=== PATIENT | female | born 1945 | race Caucasian/White ===

== ENCOUNTER 2024-03-13 18:21 | Inpatient (IN) | payer MEDICARE, BC, SELFPAY ==
[2024-03-13] VITALS (24 sets, daily range): BP systolic 108–155; BP diastolic 53–115; BMI 20.8; BMI 20.5
[2024-03-13 12:45] LABS: INR 1.17; PT 14.7 Sec (11.4-14.6)
[2024-03-13 12:46] LABS: ALT (SGPT) 71 U/L (0-35); Albumin 3.8 g/dl (3.5-5.0); Alkaline Phosphatase 104 U/L (38-126); Blood Urea Nitrogen 18 mg/dl (7-17); Calcium 8.8 mg/dl (8.4-10.2); Carbon Dioxide 23 mmol/L (22-30); Chloride 98 mmol/L (98-107); Estimated Creatinine Clearance 72 ml/min; Magnesium 1.9 mg/dl (1.6-2.3); Potassium 4.5 mmol/L (3.5-5.1); Sodium 131 mmol/L (135-145); Total Bilirubin 0.6 mg/dl (0.2-1.3); eGFR > 60.00
[2024-03-13 12:47] LABS: AST (SGOT) 56 U/L (14-36); Glucose 104 mg/dl (70-99)
[2024-03-13 12:49] LABS: % Basophils 1.4 % (0-2); % Eosinophils 0.7 % (0-6); % Immature Granulocytes 0.3 % (0-0.5); % Monocytes 16.8 % (1.7-9.3); % Neutrophils 61.8 % (42.2-75.2); Absolute Basophils 0.1 10^3/uL (0-0.2); Absolute Eosinophils 0.1 10^3/uL (0-0.7); Absolute Lymphocytes 1.5 10^3/uL (1.2-3.4); Absolute Monocytes 1.3 10^3/uL (0.1-0.6); Absolute Neutrophils 4.7 10^3/uL (1.4-6.5); Hematocrit 35.4 % (37.0-47.0); Hemoglobin 12.8 g/dL (12.0-16.0); Mean Corp Hgb Conc. 36.2 g/dL (33.0-37.0); Mean Corpuscular Hgb 30.8 pg (27.0-31.0); Mean Corpuscular Volume 85.3 fL (81.0-99.0); Mean Platelet Volume 9.6 fL (7.4-10.4); Nucleated Red Blood Cells % 0 %; Platelet Count 348 10^3/uL (130-400); Red Blood Cell Count 4.15 10^6/uL (4.20-5.40); Red Cell Dist. Width 14.1 % (11.5-14.5); White Blood Cell Count 7.7 10^3/uL (4.8-10.8)
--- NOTE | 2024-03-13 13:15 | ED.GENMED ---
History of Present Illness
General
Chief Complaint: Chest Problem
Source: patient and family
Time Seen by Provider: 03/13/24 12:06
History of Present Illness
History of Present Illness:
This patient is a 78-year-old female who states that last Wednesday she was 'not feeling well' associated with fevers and bodyaches which gradually resolved by Wednesday. She does note that on February 27 she suffered a bug bite x 2 to her left foot and
noticed a small area of redness. She saw her primary on Wednesday and had COVID flu Lyme and RSV testing performed, all of which were unremarkable. Around this time, perhaps Wednesday night, she noticed that her heart was racing and read as 'high'
on her pulse oximeter at home for at least a few hours before resolving. She noticed this again last night. She denies palpitations. Patient had blood work performed as a prerequisite to her rheumatology appointment for today, but does not yet
know the results. That blood work was performed on Wednesday, which is the same time that she noted mild discomfort in the front of her chest and less so in the back specifically only with a deep breath. This is still present, but much less. She
thinks she may have wrenched her back. Wednesday evening she had an episode of nonbloody diarrhea. Overall, she feels weak and has been eating less than usual although she is very hungry right now. She rang her PCP today and was referred to the
emergency department for further evaluation. She denies dyspnea, palpitations, dizziness, lightheadedness, nausea, vomiting, ECM like rash, tick bites, joint pain, or other complaints.
Past History
Past History
ED Past Medical History: Other (Sjogren's, ocular myasthenia, Raynaud's, essential tremor, Sweta's)
ED Past Surgical History: Cholecystectomy
Social History
Tobacco: Former smoker
Alcohol: Daily
Drug: None
Personal:
Living: with family
Phy Exam
Physical Exam
Physical Exam:
GENERAL: Alert , in no apparent distress
EYE: pupils equal and reactive
NECK: Supple, no significant adenopathy.
ENT: o/p clr, mmm.
CARDIAC: Irregularly irregular, tachycardic
LUNGS: Clear breath sounds bilaterally, no acute respiratory distress, speaks in full sentences easily, no wheezes rales or rhonchi noted
ABDOMEN: Soft, without focal tenderness, no r/g, no cvat
NEUROLOGICAL: Alert and oriented, no focal neuro deficits
SKIN: Warm and dry, skin intact.
MUSCULOSKELETAL: No edema, well perfused.
PSYCH: Normal and appropriate interaction.
Scores
[id number] Score for Afib Stroke Risk
Age in Years (65=0, 65-74=1, >/=75=2): > or = 75
Sex (Female=+1): Female
Congestive Heart Failure History (Yes=+1): No
Hypertension History (Yes=+1): No
Stroke/TIA/Thromboembolism History (Yes=+2): No
Vascular Disease History (Yes=+1): No
Diabetes Mellitus (Yes=+1): No
Score: 3
Anticoagulation Recommendations: Recommend anticoagulation (as validated in nonvalvular fib)
Course
Orders/Labs/Results
Orders:
Orders
03/13/24 12:00
Electrocardiogram (*1) Urgent
Reason for Study: Bradycardia / Tachycardia
EKG- Treatment ONCE
03/13/24 12:06
Cardiac Monitoring- Treatment ONCE
CR Chest Portable - 1 View Urgent
Comment:
Reason For Exam: sooob
Reason Study Needs to be Portable: Unable to Transport
03/13/24 12:22
Complete Blood Count/With Diff Urgent
Comprehensive Metabolic Panel Urgent
Magnesium Urgent
PTT Urgent
Prothrombin Time Urgent
TSH Urgent
03/13/24 13:14
Diltiazem 125 mg/125 ml Nss [Cardizem] 125 mg in 125 ml IV NOW
Initial dose in mg/hr, then titrate:: 5
Titrate to keep:: Heart rate 80-100 bpm
Titrate by mg/hr:: 5 mg/hr
Frequency of titrations (minutes):: 15
Maximum dose in mg/hr:: 15
Diltiazem HCl [Cardizem] 15 mg IV NOW STA
Heparin 3,500 units IV NOW STA
Nursing to Place Non Medication Order As Directed
Physician Order: PTT 6 hours after initial start of Heparin infusion
Above order entered?: Yes
03/13/24 13:15
0.9% Sodium Chloride 500 ml [Nss] 500 ml IV BOLUS
Heparin 71960 Units/250 ml 25,000 units in 250 ml IV PER PROTOCOL
Weight to be used for heparin protocol in kilograms (kg):: 58.4
Protocol:: Cardiac Tx/Acute Coronary
PTT Goal Range to be used:: PTT 73 to 111 seconds
Order type:: Initial
INITIAL Infusion Dose (UNITS/KG/hr) & then follow protocol:: 12 units/kg/hr
Infusion Dose in UNITS/hr & then follow protocol (UNITS/hr):: 700
INFUSION RATE in mL/hr & then follow protocol (mL/hr):: 7
PTT less than or equal to 64 seconds:: Increase rate by 200 units/hr (+ 2 mL/hr)
PTT 64.1 to 72.9 seconds:: Increase rate by 100 units/hr (+ 1 mL/hr)
PTT 73 to 111 seconds:: Target Range. No change in rate.
PTT 111.1 to 130.9 seconds:: Decrease rate by 100 units/hr (- 1 mL/hr)
PTT 131 to 199.9 seconds:: HOLD for 1 hr. Then decrease rate by 200 units/hr (- 2 mL/hr)
PTT greater than or equal to 200 seconds:: HOLD for 2 hrs & Notify Provider. Then decrease by 200 units/hr (-
2 mL/hr)
Lab follow-up:: Each change, PTT q6h until 2 consecutive are therapeutic. Then PTT
daily.
03/13/24 13:41
D-Dimer Urgent
Lyme Progressive Stat
03/13/24 14:21
CT Chest Pe Study Urgent
Comment:
Reason For Exam: pleuritic cp, new onset afib
03/13/24 14:27
Troponin I Routine
Comment: COULD NOT BE ADDED
03/13/24 19:33
PT/INR [Prothrombin Time] Routine
Is patient on Coumadin/Warfarin?: No
Comment: ON IV HEPARIN
Abnormal Lab Results
03/13/24 03/13/24
12:22 13:41
RBC 4.15 L 10^6/uL
(4.20-5.40)
Hct 35.4 L %
(37.0-47.0)
Absolute Monos (auto) 1.3 H 10^3/uL
(0.1-0.6)
Lymphocytes % 19.0 L %
(20.5-51.1)
Monocytes % 16.8 H %
(1.7-9.3)
PT 14.7 H Sec
(11.4-14.6)
D-Dimer 2.65 H ug/mlFEU
(0.00-0.50)
Sodium 131 L mmol/L
(135-145)
BUN 18 H mg/dl
(7-17)
Creatinine 0.5 L mg/dL
(0.6-1.0)
Glucose 104 H mg/dl
(70-99)
AST 56 H U/L
(14-36)
ALT 71 H U/L
(0-35)
TSH 5.19 H uIU/ml
(0.47-4.68)
03/13/24 12:22
03/13/24 12:22
Vital Signs
Initial and Last Documented VS:
Initial Vital Signs
Temp Pulse Resp BP Pulse Ox
98.0 F 168 18 155/97 98
03/13/24 12:00 03/13/24 12:00 03/13/24 12:00 03/13/24 12:00 03/13/24 12:00
Last Documented Vital Signs
Temp Pulse Resp BP Pulse Ox
98.0 F 148 21 135/88 96
03/13/24 12:00 03/13/24 14:55 03/13/24 14:45 03/13/24 14:45 03/13/24 13:45
*Critical Care Note
Total Time (30-74mins, 75-104mins- exclusive of procedures): 30
Update Note
Update Note:
Patient presents to the Emergency Department with generalized malaise, fevers, pleuritic chest pain
Number and Complexity of Problems Addressed at the Encounter
� Chronic conditions affecting care:
� Acute Exacerbation and/or Progression of Chronic Illness:
� Differential Diagnosis includes: But not limited to A-fib, PE, Lyme, electrolyte disorder, etc. etc.
Amount and/or Complexity of Data to be Reviewed and Analyzed
� I performed an independent evaluation of and my interpretation is:
EKG: Read by me, normal axis, A-fib with RVR, no acute ischemia
CT:1. No evidence of pulmonary embolism or thoracic aortic dissection.
2. Small bilateral pleural effusions, suspected bibasilar subsegmental atelectasis.
3. Mild centrilobular emphysema.
4. Mild coronary arterial calcification. Please correlate with symptoms of and risk factors for coronary artery disease, with further workup as clinically appropriate.
Xrays: Chest x-ray read by radiology NAD
Laboratory Studies: Generally unremarkable, troponin within normal limits. Nonspecific D-dimer elevation but CT not consistent with PE
Other:
� Review of other/old records reveals:
� Clinical information was obtained by an independent historian: Daughter who is bedside
� Prescriptions/Medications Considered but not given:
� Further testing considered but not performed:
Risk of Complications and/or Morbidity or Mortality of Patient Management
� Social determinants of health affecting care:
� Discussion with other providers (PCP, Hospitalists, Consultants, etc):
� Escalation of care including admission/observation vs risk of discharge considered: Multiple reassessments, will increase Cardizem drip for enhanced rate control, heparin drip started, no bleeding. Patient feels better, and
did eat a meal. No PE noted. Will discuss with hospitalist for admission and continued management of new onset A-fib. Patient remained stable here and is aware of goals of care, daughter at bedside, questions answered. 3:31 PM [place] text sent to
admitting hospitalist.
ED Attending Note
-
Portions of this chart may have been created with voice recognition software.� Occasional wrong word or��sound alike� substitutions may have occurred due to the inherent limitations of voice recognition software.
Discharge Plan
Departure
Patient Disposition: Admit
Date of Disposition: 03/13/24
Time of Disposition: 15:31
Admit to: Telemetry
Presentation/result/management discussed w/ accepting MD/DO: Hospitalist
Condition: Fair
Discharge Problem:
A-fib
Prescriptions:
No Action
aspirin 81 mg Tablet,Delayed Release (Dr/Ec)
81 mg PO HS
levothyroxine 25 mcg Tablet
25 mcg PO DAILY
calcium carbonate [Calcium 500] 500 mg calcium (1,250 mg) Tablet
500 mg PO BID
ascorbic acid (vitamin C) [Vitamin C] 500 mg Tablet
500 mg PO DAILY
ibuprofen [Advil] 200 mg Tablet
200 mg PO Q6HPRN PRN (Reason: mild pain)
vitamin B complex Tablet
1 tab PO DAILY
cholecalciferol (vitamin D3) [Vitamin D3] 25 mcg (1,000 unit) Tablet
25 mcg PO HS
Fish Oil 500 mg Capsule
500 mg PO HS
Centrum 18-400 mg-mcg Tablet
1 tab PO DAILY
Referrals:
Olga Sosa, [Family Provider] -
Interventions
Interventions:
*Risk Screen - Suicide Last Done: 03/13/24 12:13
*General Assessment Last Done: 03/13/24 12:13
*Neglect/Abuse Screening Last Done: 03/13/24 12:13
*ED COVID-19 Vaccine History Last Done: 03/13/24 12:13
ED- Cardiac Assessment Last Done: 03/13/24 12:13
ED- Pulmonary Assessment Last Done: 03/13/24 12:13
Discharge Date and Time
Print Language: SUDANESE
[2024-03-13 13:17] LABS: TSH 5.19 uIU/ml (0.47-4.68)
[2024-03-13] MEDS: HEPARIN 3500 UNITS IV (13:32)
[2024-03-13] MEDS: HEPARIN 25000 UNITS/250 ML IV (13:33)
[2024-03-13] MEDS: CARDIZEM 15 MG IV ×2 (13:41→15:36)
[2024-03-13] MEDS: NSS 500 IV (13:41)
[2024-03-13] MEDS: CARDIZEM 125 IV ×2 (13:41→21:36)
[2024-03-13 14:14] LABS: D-Dimer 2.65 ug/mlFEU (0.00-0.50)
[2024-03-13 15:02] LABS: Troponin I < 0.012 ng/ml
--- NOTE | 2024-03-13 19:02 | HPS.HSE ---
Addendum entered and electronically signed by Sherly Gee MD 03/13/24 20:21:
I personally performed a history and physical exam of the patient and discussed management with the resident. I reviewed the resident's note and agree with the documented findings and plan of care HPI/CC.
GENERAL: well developed, well nourished, female in no apparent distress
HEENT: NC/AT--no O2 requirements
HEART: irreg irreg
LUNGS : clear to auscultation bilaterally
ABDOM: soft, nontender, nondistended, + bowel sounds
EXT: no cyanosis, clubbing, or edema
NEUROLOGIC: tremor present--grossly intact otherwise
new onset Atrial Fibrillation--unclear trigger--doubt thyroid causing as TSH 5, ? related to heat, ETOH (drinks 1 beer/night), COPD?--ADMIT--cont cardizem drip, IV heparin--will need ECHO--CM to [facility]--D-Dimer elevated but CT PE neg
Fevers-- unclear cause--possibly viral--pt did get insect bite--check for Babesia--culture--COVID swab negative
Hypothyroid--with hx of Sweta's--Elevated TSH levels--No medication adjustments at the present time. May consider adjustment of levothyroxine if thyroid levels remain abnormal following resolution of presenting medical issue--Recommend repeat
outpatient lab testing for fine-tuning of medication.
Elevated liver function tests: Monitoring--AST is 71 and ALT is 56 which is elevated--Possibly due to infectious process. Will monitor.
Reduced appetite--Regular diet ordered--Consider dietary consult.
Ongoing autoimmune disease including Sjogren's, Sweta's, ocular myasthenia gravis, Raynaud's phenomenon---Will reach out to Dr. Costa in regards to recent blood work conducted to share with the patient. Lab data may be able to help be a clear
picture of the patient's ongoing autoimmune disease
DVT proph
code status -- FULL CODE
Original Note:
Family Physician
-
Family Physician: Olga Sosa
Chief Complaint
-
Heart palpitations and high temperature
History of Present Illness
This patient is a 78-year-old female who presented to the emergency department stating that last Wednesday she was 'not feeling well' and associated with fevers and bodyaches which gradually resolved by Wednesday. She noted that on February 27 she suffered
2 bug bites on her left foot and noticed a small area of redness she saw her primary on Wednesday and and had a COVID, flu, Lyme, and RSV testing conducted which were all negative. 6 days prior to her presentation to the emergency department she
noticed that her heart was racing and read as high on her pulse oximeter at home for at least a few hours before resolving. She again noticed it the the night prior to her presentation at the emergency department. She denies palpitations. Patient
had a bout of diarrhea on Wednesday afternoon that continued into Wednesday before resolving. Her appetite has decreased. Patient had blood work done for an upcoming rheumatology appointment with Dr. Costa and does not know the results of the blood
work. Patient also noted mild discomfort in the front of her chest and less so on the back specifically only with a deep breath the pain is still present but much less. She thinks that she may have hurt her back after a fall walking upstairs.
When she fell she did not hit her head or lose consciousness. She denies any dyspnea, palpitations, dizziness, lightheadedness, nausea, vomiting, rash, joint pain or any other complaints. Patient got a [id number] score of 3 in the emergency
department. EKG conducted showed an irregular rhythm suspicious for atrial fibrillation with rapid ventricular response. The patient was subsequently admitted to [facility] for atrial fibrillation.
Medical History
Past Medical History
Past Medical History: Reports Other (Sjogren's, Sweta's, ocular myasthenia gravis, Raynaud's phenomenon, and essential tremor)
Additional Past Medical History:
Sjogren's, Sweta's, ocular myasthenia, Raynaud's, essential tremor
Past Surgical History: Reports Cholecystectomy
Social History
Tobacco: Non-smoker
Alcohol: Occasional
Drug: None
Personal:
Living: With Family
Employment: Not Employed
Family History
Family History: Other (Her sisters share many of the similar autoimmune disorders that she has but 1 sister also has vitiligo)
Allergies / Home Medications
Allergies reflects when Allergies were last updated in [employer].
Home Medications with original date entered in [employer]
Allergy/Medication List:
Allergies
Allergy/AdvReac Type Severity Reaction Status Date / Time
No Known Allergies Allergy Verified 03/13/24 12:02
Home Medications
ascorbic acid (vitamin C) 500 mg tablet (Vitamin C) 500 mg PO DAILY 03/13/24
aspirin 81 mg tablet,delayed release 81 mg PO HS 03/13/24
calcium carbonate 500 mg PO BID 03/13/24
cholecalciferol (vitamin D3) 25 mcg (1,000 unit) tablet (Vitamin D3) 25 mcg PO HS 03/13/24
ibuprofen 200 mg tablet (Advil) 200 mg PO Q6HPRN PRN mild pain 03/13/24
levothyroxine 25 mcg tablet 25 mcg PO DAILY 03/13/24
multivitamin-ferrous fumarate-folic acid 18 mg-400 mcg tablet (Centrum) 1 tab PO DAILY 03/13/24
omega-3 fatty acids 500 mg capsule 500 mg PO HS 03/13/24
vitamin B complex 1 tab PO DAILY 03/13/24
Review of Systems
-
History Source: Patient
Constitutional: Reports Fever and Fatigue
EENT: Reports No Symptoms
Respiratory: Reports No Symptoms
Cardiac: Reports Other (Fast heart rate that she does not feel as palpitations)
Abdomen/GI: Reports No Symptoms
: Reports No Symptoms
Musculoskeletal: Reports No Symptoms
Skin: Reports Other (2 bug bites on her left foot)
Neurological: Reports No Symptoms
Endocrine: Reports No Symptoms
Hematologic/Lymphatic: Reports No Symptoms
Psych: Reports No Symptoms
Physical Exam
Vital Signs
Vital Signs
Temp Pulse Resp BP Pulse Ox
98.0 F 80 20 122/70 95
03/13/24 12:00 03/13/24 19:00 03/13/24 18:50 03/13/24 19:00 03/13/24 17:50
Physical Exam
General: Well Developed, Well Nourished, No Apparent Distress, Comfortable and Conversant
HEENT: NormoCephalic, Anicteric, Moist mucous membranes and Atraumatic
Respiratory: Crackles (Minimal crackles heard on lower left lung base) and Non Labored Respirations
Cardiac: Irregular Rhythm
Breast: Deferred by me
GI: Soft, Non Tender, Non Distended and Normal Bowel Sounds
Rectal: Deferred by Provider
Genito-urinary: Deferred by me
Musculoskeletal: No Clubbing, No Cyanosis and No Edema
Skin: Warm and Dry
Neuro: AO x 3 and Nonfocal/grossly intact
Psych: Calm
Laboratory Results
-
03/13/24 12:22
03/13/24 12:22
Laboratory Results
PT 14.7 Sec (11.4-14.6) H 03/13/24 12:22
INR 1.17 03/13/24 12:22
APTT 33.0 Sec (23.4-35.0) 03/13/24 12:22
Total Bilirubin 0.6 mg/dl (0.2-1.3) 03/13/24 12:22
AST 56 U/L (14-36) H 03/13/24 12:22
ALT 71 U/L (0-35) H 03/13/24 12:22
Alkaline Phosphatase 104 U/L (38-126) 03/13/24 12:22
Troponin I < 0.012 ng/ml 03/13/24 14:27
Impression/Plan
-
Impression + Plan:
- Irregular rhythm - EKG study shows new onset Atrial Fibrillation: Monitoring
Patient admitted to the IVU for further treatment and monitoring
Cardizem drip administered for rate control
Heparin drip begun for anticoagulation
Cardiology consult ordered
Echocardiogram ordered
Troponins within normal limits
Elevated D-dimer of 2.65 on admission
- Fever like symptoms: Monitoring
Urine cultures ordered
Considering blood cultures�on hold
COVID swab negative
Babesia microti labs ordered
- Elevated TSH levels: Monitoring
No medication adjustments at the present time. May consider adjustment of levothyroxine if thyroid levels remain abnormal following resolution of presenting medical issue.
Recommend repeat outpatient lab testing for fine-tuning of medication.
- Elevated liver function tests: Monitoring
AST is 71 and ALT is 56 which is elevated.
Possibly due to infectious process. Will monitor.
- Reduced appetite: Monitoring
Regular diet ordered.
Consider dietary consult.
- Ongoing autoimmune disease including Sjogren's, Sweta's, ocular myasthenia gravis, Raynaud's phenomenon: Monitoring
Will reach out to Dr. Costa in regards to recent blood work conducted to share with the patient. Lab data may be able to help be a clear picture of the patient's ongoing autoimmune disease.
[2024-03-13 19:03] LABS: Urine Albumin Negative (Neg - Trace); Urine Bilirubin Negative (Negative); Urine Character Clear (Clear); Urine Color Straw; Urine Glucose Negative (Negative); Urine Ketone Negative (Negative); Urine Leukocyte 2+ (Negative); Urine Nitrite Negative (Negative); Urine Occult Blood 1+ (Negative); Urine Urobilinogen Negative (Neg - 1+)
[2024-03-13 19:09] LABS: COVID-19 Antigen Negative (Negative)
[2024-03-13 19:23] LABS: Urine Bacteria Moderate (Negative)
[2024-03-13 21:15] LABS: INR 1.13; PT 14.3 Sec (11.4-14.6)
[2024-03-13 21:16] LABS: APTT 46.7 Sec (23.4-35.0)
[2024-03-13] MEDS: VITAMIN D3 (cholecalciferol) 25 MCG PO (21:28)
[2024-03-13] MEDS: ASPIR LOW (ENTERIC COATED) 81 MG PO (21:28)
[2024-03-13] MEDS: OSCAL CAL 500 500 MG PO (21:28)
--- NOTE | 2024-03-13 23:35 | PTCARENOTE ---
Pt admitted to IVU from ED ~1930. Pt and daughter oriented to unit and hospital. Pt belongings w/ pt. Discussed fall risk status w/ pt and reinforced using call esteves for assistance getting OOB. HR afib 80s-100s. Heparin currently infusing at
900u/hr. Cardizem infusing at 15mg/hr.
[2024-03-14] VITALS (7 sets, daily range): BP systolic 136–171; BP diastolic 63–80; BMI 20.5
[2024-03-14] MEDS: MELATONIN 3 MG PO (00:55)
[2024-03-14 03:40] LABS: Hematocrit 33.7 % (37.0-47.0); Mean Corp Hgb Conc. 35.6 g/dL (33.0-37.0); Mean Corpuscular Hgb 31.4 pg (27.0-31.0); Mean Corpuscular Volume 88.2 fL (81.0-99.0); Mean Platelet Volume 9.9 fL (7.4-10.4); Platelet Count 369 10^3/uL (130-400); Red Blood Cell Count 3.82 10^6/uL (4.20-5.40); White Blood Cell Count 7.3 10^3/uL (4.8-10.8)
[2024-03-14 04:00] LABS: APTT 54.9 Sec (23.4-35.0)
[2024-03-14 04:03] LABS: ALT (SGPT) 98 U/L (0-35); AST (SGOT) 86 U/L (14-36); Albumin 3.3 g/dl (3.5-5.0); Alkaline Phosphatase 136 U/L (38-126); Blood Urea Nitrogen 14 mg/dl (7-17); Calcium 8.7 mg/dl (8.4-10.2); Carbon Dioxide 24 mmol/L (22-30); Chloride 100 mmol/L (98-107); Estimated Creatinine Clearance 71 ml/min; Glucose 104 mg/dl (70-99); Magnesium 1.8 mg/dl (1.6-2.3); Potassium 4.1 mmol/L (3.5-5.1); Sodium 132 mmol/L (135-145); Total Bilirubin 0.5 mg/dl (0.2-1.3); Total Protein 6.4 g/dl (6.3-8.2); eGFR > 60.00
[2024-03-14] MEDS: SYNTHROID 25 MCG PO (05:29)
[2024-03-14] MEDS: CARDIZEM 125 IV (05:59)
[2024-03-14] MEDS: B COMPLEX w/VITAMIN C 1 CAPLET PO (08:40)
[2024-03-14] MEDS: OSCAL CAL 500 500 MG PO ×2 (08:41→19:49)
[2024-03-14] MEDS: THERAGRAN 1 TABLET PO (08:41)
[2024-03-14] MEDS: VITAMIN C 500 MG PO (08:41)
--- NOTE | 2024-03-14 09:15 | CON.CAR ---
Addendum entered and electronically signed by Ty Reza MD 03/14/24 13:30:
I saw and examined the patient.
The ECHO TECHNICIAN's note was reviewed and I agree with the note.
78-year-old woman with a history of COPD, Sjogren's syndrome, Raynaud's phenomenon, myasthenia gravis and Sweta's thyroiditis who had a febrile illness last week with fevers and bodyaches for 3 to 4 days and then number days later had diarrhea.
Those symptoms have resolved patient did not notice that she had an elevated heart rate on pulse oximeter and ultimately was noted to be in A-fib with RVR. Patient's had some fatigue also has not slept well. Unclear how much of her symptoms are
related to recent illness versus some symptoms related to A-fib. Patient in reasonable rate control on Cardizem which was just transition from IV to oral
- New onset A-fib. CHADSVASC 4 (female age greater than 75, HTN)
-Continue anticoagulation. Transition from heparin to Eliquis
-Continue rate control with Cardizem.
-Discussed possible MARKOS cardioversion tomorrow. Patient is unsure if she wants to proceed. We agreed that she would be n.p.o. after midnight and would reassess in a.m.
Original Note:
Consultation
Consultation Request
Date/Time Consultation Requested: 03/14/2024 07:25
Date/Time Consultation Performed: 03/14/2024 09:00
Requesting Provider: Dr. Kristine Morgan
Performing Provider: CHRISTINE Del Rio for Dr. Reza
Reason for Consultation: New onset atrial fibrillation
Medical History
-
Chief Complaint: Elevated heart rate
History of Present Illness:
Aileen Galicia is a 78-year-old female with COPD/former smoker, Sjogren's, ocular myasthenia gravis, Raynaud's phenomenon, and Sweta's thyroiditis who presented with a chief complaint of elevated heart rate. This was preceded by 'not
feeling well' with associated fevers and bodyaches. She had episodes of diarrhea that were nonbloody. These have resolved. But she endorses that her appetite is not back to normal. She saw her PCP. SARS COV 2 was negative in the office. RSV
and influenza were also negative. She reported a recent bug bite to her left foot and the line was also performed. 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 She was found to have atrial fibrillation with rapid
ventricular response for which cardiology has been consulted.
Past Medical History
Past Medical History: COPD, Hypothyroidism (Sweta's thyroiditis) and Other (Ocular myasthenia gravis, Raynaud's phenomenon, Sjogren's)
Past Surgical History: Cholecystectomy
Social History
Tobacco: Former Smoker
Alcohol: Daily
Drug: None
Personal:
Living: With Family (Cares for her disabled )
Employment: Retired
Family History
Family History: Reviewed & Not Pertinent (Denies early CAD and SCD.)
Allergies / Home Medications
Allergy/AdvReac Type Severity Reaction Status Date / Time
No Known Allergies Allergy Verified 03/13/24 12:02
�Medication �Instructions �Recorded �Confirmed �Type
ascorbic acid (vitamin C) 500 mg 500 mg PO DAILY Supplement 03/13/24 03/13/24 History
tablet (Vitamin C)
aspirin 81 mg tablet,delayed 81 mg PO HS Blood Clot 03/13/24 03/13/24 History
release Prevention/Tx
calcium carbonate 500 mg PO BID Supplement 03/13/24 03/13/24 History
cholecalciferol (vitamin D3) 25 25 mcg PO HS Supplement 03/13/24 03/13/24 History
mcg (1,000 unit) tablet (Vitamin
D3)
ibuprofen 200 mg tablet (Advil) 200 mg PO Q6HPRN PRN mild pain 03/13/24 03/13/24 History
levothyroxine 25 mcg tablet 25 mcg PO DAILY Supplement 03/13/24 03/13/24 History
multivitamin-ferrous 1 tab PO DAILY Supplement 03/13/24 03/13/24 History
fumarate-folic acid 18 mg-400 mcg
tablet (Centrum)
omega-3 fatty acids 500 mg capsule 500 mg PO HS High Cholesterol 03/13/24 03/13/24 History
vitamin B complex 1 tab PO DAILY Supplement 03/13/24 03/13/24 History
Review of Systems
-
History Source: Patient
All other systems: Negative unless noted
Constitutional: Fever, Fatigue and Night Sweats
EENT: No Symptoms
Respiratory: No Symptoms
Cardiac: Palpitations
Abdomen/GI: Constipated and Anorexia
: No Symptoms
Musculoskeletal: No Symptoms
Skin: No Symptoms
Neurological: Weakness
Endocrine: Temperature Intolerance
Hematologic/Lymphatic: No Symptoms
Physical Exam
Vital Signs
Temp Pulse Resp BP Pulse Ox
97.8 F 79 20 140/63 93
03/14/24 07:30 03/14/24 07:31 03/14/24 07:30 03/14/24 07:31 03/14/24 07:31
Lab Results
03/14/24 03:12
03/14/24 03:12
Troponin I < 0.012 ng/ml 03/13/24 14:27
Physical Exam
General: Well Developed, Well Nourished, No Apparent Distress and Comfortable
HEENT: Normocephalic, Anicteric and Moist Mucous Membranes
Respiratory: Clear and Non Labored Respirations
Cardiac: S1/S2 and Irregular Rhythm; Negative Peripheral Edema
Breast: Deferred by me
GI: Soft, Non Tender, Non Distended and Normal Bowel Sounds
Rectal: Deferred by Provider
Genito-urinary: No Costovertebral Tender
Musculoskeletal: No Clubbing, No Cyanosis and No Edema
Skin: Warm and Dry
Neuro: AO x 3
Hematologic/Lymphatic: No Lymphadenopathy
Psych: Calm
Impression / Plan
-
Atrial fibrillation with rapid ventricular response, new diagnosis
-Asymptomatic without palpitations
-Rate controlled, transition to Cardizem CD 120 mg daily
-Elevated D-dimer, CT PE study negative
-Oral Anticoagulation: Heparin gtt, case management to cruz apixaban 5 mg twice daily
-We discussed the risks and benefits of oral anticoagulation, she has never had any abnormal bleeding, she is agreeable to anticoagulation
-[id number]: score at least 4 (age 75 or more, Vascular disease, female gender)
-Echocardiogram today
Coronary artery calcification
-Chest pain free
-Fasting lipid panel in a.m.
-Start rosuvastatin 10 mg every evening
-She can stop her aspirin in favor of apixaban
Fevers, per primary service
Sweta's thyroiditis, on levothyroxine, TSH elevated, T4 pending
COPD
Sjogren's
Ocular myasthenia gravis
Raynaud's phenomenon
Data Reviewed
-
EKG: Report Reviewed by me (Atrial fibrillation with rapid ventricular response, rate 159)
Radiology: Report Reviewed by me (CXR: Clear lungs)
CT Scan: Report Reviewed by me (Chest: No evidence of pulmonary embolism or thoracic aortic dissection. Mild centrilobular emphysema. Mild coronary arterial calcification. )
Labs: Labs Reviewed by me
[2024-03-14 11:14] LABS: APTT 71.4 Sec (23.4-35.0)
[2024-03-14 11:23] LABS: TSH Reflex To Free T4 8.19 uIU/ml (0.47-4.68)
[2024-03-14] MEDS: CARDIZEM CD 120 MG PO (11:42)
[2024-03-14 11:51] LABS: Free T4 1.55 ng/dl (0.78-2.19)
--- NOTE | 2024-03-14 12:01 | CM ---
Chart reviewed. Patient is independent of ADLS, lives with her disabled in a 2 STH, 2 GIAN, 0 DME. Patient currently with no discharge needs. Plan is for the patient to return home. CM to follow
--- NOTE | 2024-03-14 12:02 | CM ---
Pricing on Eliquis through the patient's [facility] is $30 retail and $60 for a 90 day supply. Patient is agreeable to the cost. Free 30 day coupon placed in the patient's red discharge folder.
[2024-03-14] MEDS: ELIQUIS 5 MG PO ×2 (13:26→19:49)
--- NOTE | 2024-03-14 15:23 | W.PN.HOSP.TC ---
Addendum entered and electronically signed by Sherly Gee MD 03/14/24 19:13:
I saw and evaluated the patient independently. I reviewed the resident�s note and agree with findings and plan as documented by Dr. Morgan.
GENERAL: well developed, well nourished, female in no apparent distress
HEENT: NC/AT--no O2 requirements
HEART: irreg irreg
LUNGS : clear to auscultation bilaterally
ABDOM: soft, nontender, nondistended, + bowel sounds
EXT: no cyanosis, clubbing, or edema
NEUROLOGIC: tremor present--grossly intact otherwise
new onset Atrial Fibrillation--unclear trigger--doubt thyroid causing as TSH 5, ? related to heat, ETOH (drinks 1 beer/night), COPD?--off cardizem drip and now on oral cardizem, off IV heparin and now on Eliquis-- ECHO with preserved EF but severe
mitral regurg---D-Dimer elevated but CT PE neg
Fevers-- unclear cause--possibly viral--pt did get insect bite-- Babesia smear pending----COVID swab negative
Hypothyroid--with hx of Sweta's--Elevated TSH levels--No medication adjustments at the present time. May consider adjustment of levothyroxine if thyroid levels remain abnormal following resolution of presenting medical issue--Recommend repeat
outpatient lab testing for fine-tuning of medication.
Elevated liver function tests: Monitoring--AST is 71 and ALT is 56 which is elevated--Possibly due to infectious process--if still elevated in AM, will do US
Reduced appetite--Regular diet ordered--Consider dietary consult.
Ongoing autoimmune disease including Sjogren's, Sweta's, ocular myasthenia gravis, Raynaud's phenomenon---Will reach out to Dr. Costa in regards to recent blood work conducted to share with the patient. Lab data may be able to help be a clear
picture of the patient's ongoing autoimmune disease
DVT proph
code status -- FULL CODE
Original Note:
Today's Communication/Plan
-
Cardiology assessment placed the patient had a [id number] score of 4. They recommended that the patient continue anticoagulation and be transitioned from heparin to Eliquis upon discharge. Continue rate control Cardizem. The patient is
considering possible MARKOS cardioversion tomorrow. Patient is unsure if she wants to proceed with MARKOS cardioversion but would agree that she would be n.p.o. after midnight and reassess tomorrow morning. Lorazepam in the evening added to help with
patient's anxiety during bedtime.
Assessment / Plan
Assessment / Plan
Impression + Plan:
- Atrial fibrillation with rapid ventricular response: Monitoring
Patient admitted to the IVU for further treatment and monitoring
Cardizem drip administered for rate control - Continue
Heparin drip begun for anticoagulation -plan to transition to Eliquis PO if affordable in the outpatient setting
Cardiology consult ordered -assessment determined that the patient is diagnosed with atrial fibrillation with rapid ventricular response -diagnosis updated. [id number] score was at least 4 (age 75 or more, vascular disease, female gender).
Cardiology recommends continuing anticoagulation and transitioning from heparin to Eliquis. They should continue rate control with Cardizem. There was consideration of possible MARKOS cardioversion tomorrow but the patient was unsure if she wanted to
proceed. She agreed to be n.p.o. after midnight and would reassess in the morning.
Echocardiogram ordered -echocardiogram showed a normal left ventricular size, wall thickness and systolic function. There was no regional wall motion abnormalities seen. Left ventricular ejection fraction was 60 to 65%. Diastolic function was
indeterminate due to atrial fibrillation. There was moderate tricuspid regurgitation and mild aortic regurgitation. Severe mitral regurgitation.
Troponins within normal limits
Elevated D-dimer of 2.65 on admission
- Coronary artery calcification: Stable and Monitoring
Chest is pain-free
Fasting lipid panel in the morning
Patient started on rosuvastatin 10 mg every morning
Patient can stop her aspirin in favor of apixaban
- Fever like symptoms: Monitoring
Urine cultures ordered -no significant growth
Considering blood cultures�on hold
COVID swab negative
Babesia microti labs ordered -pending
Lyme disease IgG and IgM-pending
- Elevated TSH levels: Monitoring
No medication adjustments at the present time. May consider adjustment of levothyroxine if thyroid levels remain abnormal following resolution of presenting medical issue.
Recommend repeat outpatient lab testing for fine-tuning of medication.
- Elevated liver function tests: Monitoring
AST is 86 and ALT is 98 which is elevated.
Possibly due to infectious process. Will monitor.
- Reduced appetite: Monitoring
Regular diet ordered.
Consider dietary consult.
-Anxiety/difficulty sleeping:
Patient is struggling to sleep at night and finds herself thinking about and worrying about her hospital stay.
0.5 mg of lorazepam added at night
- Ongoing autoimmune disease including Sjogren's, Sweta's, ocular myasthenia gravis, Raynaud's phenomenon: Monitoring
Left multiple phone messages with Dr. Costa's office in hopes of getting patient's outpatient lab work. Fax number left on answering machine. Will continue to try and reach their office. Patient provided urine analysis through patient portal.
Will continue to check patient portal for additional lab updates.
Anticipated Discharge: 24 - 48 hours
Subjective/Interval History
-
Date of Service: March 14, 2024
Met with patient at the bedside. She feels slightly better but continues to feel an underlying heat throughout the day. She is happy that her urine analysis results from the outpatient setting was uploaded to her patient portal and she shared that
with her care team. She did not sleep well last night and states that she only got a couple hours of sleep due to anxiety over her hospital admission.
Objective Data
-
Labs:
Laboratory Results
03/14/24 03/14/24 03/14/24
03:12 10:47 17:30
WBC 7.3
Hgb 12.0
Hct 33.7 L
Plt Count 369
APTT 54.9 H 71.4 H Cancelled
Sodium 132 L
Potassium 4.1
Chloride 100
Carbon Dioxide 24
BUN 14
Creatinine 0.4 L
Glucose 104 H
Calcium 8.7
Total Bilirubin 0.5
AST 86 H
ALT 98 H
Alkaline Phosphatase 136 H
Vital Signs:
Vital Signs
Temp Pulse Resp BP Pulse Ox
97.5 F 101 18 162/69 94
03/14/24 11:21 03/14/24 12:55 03/14/24 11:21 03/14/24 11:42 03/14/24 11:21
I&O
03/13/24 03/14/24 03/15/24
06:59 06:59 06:59
Intake Total 720 / 720 240 / 240
Balance 720 / 720 240 / 240
Review of Systems
-
History Source: Patient
Constitutional: Reports Other (Feeling hot)
EENT: Reports No Symptoms Reported
Respiratory: Reports No Symptoms
Cardiac: Reports No Symptoms
Abdomen/GI: Reports No Symptoms
Breast: Reports No Symptoms
Genitourinary: Reports No Symptoms
Musculoskeletal: Reports No Symptoms
Skin: Reports No Symptoms
Neuro: Reports No Symptoms
Endocrine: Reports No Symptoms
Hematologic / Lymphatic: Reports No Symptoms
Allergy / Immunology: Reports No Symptoms
Psych: Reports Anxious
[2024-03-14] MEDS: CRESTOR 10 MG PO (17:40)
--- NOTE | 2024-03-14 17:55 | PTCARENOTE ---
pt received from previous RN, oriented, in bed. pt noted in to be in SR on the monitor, converted from Afib @~1621, EKG completed, Dr. Reza notified. pt ambulates independently. PIV.
--- NOTE | 2024-03-14 20:41 | PTCARENOTE ---
Pt. received at change of shift. Pt. seen and assessed. Pt. AOx3. Tele reading Afib in 90s-110s. No complaints of pain at this time. Continuing to monitor the pt.
[2024-03-14] MEDS: ATIVAN 0.5 MG PO (22:12)
[2024-03-14] MEDS: VITAMIN D3 (cholecalciferol) 25 MCG PO (22:12)
[2024-03-15] VITALS (7 sets, daily range): BP systolic 139–156; BP diastolic 61–92; BMI 20.2
--- NOTE | 2024-03-15 02:56 | DOWNTIME ---
There was a [employer]ographic Information Systems Engineer Downtime on 03/15/2024 from 0100 to 03/15/2024 at 0255. Downtime documentation of patient's care, including medication administrations, has been reconciled in the electronic record per guidelines. Refer to the
patient's paper chart under the miscellaneous tab to see printed paper medication records and downtime forms.
[2024-03-15] MEDS: SYNTHROID 25 MCG PO (04:08)
[2024-03-15 05:16] LABS: Hematocrit 37.9 % (37.0-47.0); Hemoglobin 13.5 g/dL (12.0-16.0); Mean Corp Hgb Conc. 35.6 g/dL (33.0-37.0); Mean Corpuscular Volume 87.1 fL (81.0-99.0); Mean Platelet Volume 9.6 fL (7.4-10.4); Platelet Count 438 10^3/uL (130-400); Red Blood Cell Count 4.35 10^6/uL (4.20-5.40); Red Cell Dist. Width 13.9 % (11.5-14.5); White Blood Cell Count 8.1 10^3/uL (4.8-10.8)
--- NOTE | 2024-03-15 05:44 | PTCARENOTE ---
Overnight event, Pt. received phone call from that he had fallen. RN noticed, pt's HR Afib in the 140s-150s. Pt. upset in room r/t 's condition. After situation with resolved pt's HR returned to the 90s-110s. BP stable.
Continuing to monitor the pt.
[2024-03-15 05:46] LABS: ALT (SGPT) 85 U/L (0-35); AST (SGOT) 51 U/L (14-36); Albumin 3.7 g/dl (3.5-5.0); Alkaline Phosphatase 129 U/L (38-126); Blood Urea Nitrogen 11 mg/dl (7-17); Calcium 9.3 mg/dl (8.4-10.2); Carbon Dioxide 22 mmol/L (22-30); Chloride 103 mmol/L (98-107); Estimated Creatinine Clearance 70 ml/min; Glucose 96 mg/dl (70-99); HDL Cholesterol 41 mg/dl; LDL Cholesterol, Calculated 86 mg/dl; Magnesium 1.9 mg/dl (1.6-2.3); Potassium 4.2 mmol/L (3.5-5.1); Sodium 136 mmol/L (135-145); Total Bilirubin 0.5 mg/dl (0.2-1.3); Total Cholesterol 141 mg/dl (50-199); Total Protein 7.3 g/dl (6.3-8.2); Triglyceride 72 mg/dl (10-149); Very Low Density Lipoprotein 14 mg/dl (0-30); eGFR > 60.00
[2024-03-15] MEDS: CARDIZEM CD 120 MG PO (07:28)
[2024-03-15] MEDS: ELIQUIS 5 MG PO ×2 (07:28→19:29)
[2024-03-15] MEDS: THERAGRAN 1 TABLET PO (09:26)
[2024-03-15] MEDS: VITAMIN C 500 MG PO (09:26)
[2024-03-15] MEDS: B COMPLEX w/VITAMIN C 1 CAPLET PO (09:26)
[2024-03-15] MEDS: OSCAL CAL 500 500 MG PO ×2 (09:26→19:29)
--- NOTE | 2024-03-15 09:43 | W.PN.CD ---
Today's Communication / Plan
-
increase diltiazem to 180mg bid
Impression / Plan
-
Atrial fibrillation with rapid ventricular response, new diagnosis--paroxysmal
-echo with preserved EF, but significant valve disease (see below)
-initial plans for MARKOS/DCCV, but A fib was paroxysmal overnight
-back in A fib this AM: focus on rate control for now
-increase diltiazem to 180mg bid
-[id number]: score at least 4 (age 75 or more, Vascular disease, female gender): eliquis 5mg bid
Severe MR, mild/moderate AR
-central MR jet, with dilated LA and annulus
-will plan for MARKOS as outpatient once recovers from hospitalization
-we discussed topics of surgical MV repair vs MitraClip
Coronary artery calcification
-Chest pain free
-Fasting lipid panel in a.m.
-Start rosuvastatin 10 mg every evening
-She can stop her aspirin in favor of apixaban
Fevers, per primary service
Sweta's thyroiditis, on levothyroxine, TSH elevated, T4 pending
COPD
Sjogren's
Ocular myasthenia gravis
Raynaud's phenomenon
Physical Exam
Vital Signs/Labs
Vital Signs
Temp Pulse Resp BP Pulse Ox
97.9 F 99 20 149/86 95
03/15/24 07:06 03/15/24 07:30 03/15/24 07:06 03/15/24 07:09 03/15/24 08:01
03/14/24 03/15/24 03/16/24
06:59 06:59 06:59
Actual Weight 57.7 kg 56.7 kg
03/15/24 04:20
03/15/24 04:20
PT 14.3 Sec (11.4-14.6) 03/13/24 20:53
INR 1.13 03/13/24 20:53
APTT Cancelled 03/14/24 17:30
Magnesium 1.9 mg/dl (1.6-2.3) 03/15/24 04:20
Triglycerides 72 mg/dl (10-149) 03/15/24 04:20
LDL Cholesterol, Calc 86 mg/dl 03/15/24 04:20
VLDL Cholesterol, Calc 14 mg/dl (0-30) 03/15/24 04:20
HDL Cholesterol 41 mg/dl 03/15/24 04:20
TSH 5.19 uIU/ml (0.47-4.68) H 03/13/24 12:22
Free T4 1.55 ng/dl (0.78-2.19) 03/14/24 03:12
LAB Results
03/13/24
14:27
Troponin I < 0.012
Physical Exam
Constitutional: No acute distress and Comfortable
EENT: Moist mucous membranes
Cardiovascular: Pedal edema is absent, JVD pressure is normal, Rhythm/rate is irregular and Systolic murmur present
Respiratory: Respiratory effort normal and Lungs clear to auscul.
GI: Soft and Distention absent
Neuro/Psych: AO x 3
Data Reviewed
-
Date of Service: March 15, 2024
EKG: Other (SR/ST/A fib)
Echo: Tracing Personally Visualized and interpreted
Labs: Labs Reviewed by me
[2024-03-15] MEDS: CARDIZEM 60 MG PO (09:44)
--- NOTE | 2024-03-15 13:23 | CM ---
Chart reviewed. Patient is independent of ADLS, lives with her disabled in a 2 STH, 2 GIAN, 0 DME. Patient currently with no discharge needs. CM to follow
--- NOTE | 2024-03-15 13:25 | PN.CDI ---
Addendum entered and electronically signed by Kristine Morgan MD, Resident 03/15/24 18:24:
Clinically insignificant abnormal lab value
I did not include hyponatremia as it was not symptomatic nor was it far away from normal limits. NSS was given due to worries of possible dehydration from diarrhea. Sodium returned to normal limits after IV fluid resuscitation.
Original Note:
CDI
- -
CDI:
Physician Documentation Request
Admit Date: 03/13/24 18:21
Dear Doctor Cathy,
Please review the following and provide your response in the progress notes.
Clinical Indicators:
- 03/13 500ml NSS bolus given
- Labs as follows:
Laboratory Tests
03/13/24 03/14/24
12:22 03:12
Sodium 131 L 132 L
Please provide a diagnosis for the above lab values that were monitored and treatment rendered:
Hyponatremia
Clinically insignificant abnormal lab value
Other
Use of terms such as suspected, likely, concern for, or probable (associated with a specific diagnosis that is being evaluated, monitored, or treated as if it exists) are acceptable and can be coded in the inpatient setting, when documented at the
time of discharge.
Thank you,
Diane Lock RN
CDI Specialist
Please use your independent medical judgment in providing your response.
--- NOTE | 2024-03-15 13:30 | PN.CDI ---
Addendum entered and electronically signed by Kristine Morgan MD, Resident 03/15/24 18:17:
Atelectasis is not yet confirmed but remains a suspected condition.
- 03/13 CT Chest 'Mild dependent groundglass opacity most suggestive of subsegmental atelectasis'
This diagnosis has not been confirmed by a surfacer operator at the present time and imaging is not definitive.
Original Note:
CDI
- -
CDI:
Physician Documentation Request
Admit Date: 03/13/24 18:21
Dear Doctor Cathy,
Please review the following and provide your response in the progress notes.
Clinical Indicators:
The diagnosis of atelectasis was included in the signed (path report, CT, MRI, echo, etc).
- Patient admit for new onset afib
- 03/13 CT Chest 'Mild dependent groundglass opacity most suggestive of subsegmental atelectasis'
- RN assessments indicate breath sounds of crackles
Please indicate in your progress notes if you are in agreement that the above diagnosis is valid for this patient:
____ - Atelectasis is a valid diagnosis (Please include it in your progress notes)
____ - Atelectasis is not a valid diagnosis for this patient
____ - Atelectasis is not yet confirmed but remains a suspected condition
____ - Other
Use of terms such as suspected, likely, concern for, or probable are acceptable for a diagnosis that is being evaluated, monitored or treated as if it exists and can be coded in the inpatient setting, when documented at the time of discharge.
Thank you,
Diane Lock RN
CDI Specialist
Please use your independent medical judgment in providing your response.
[2024-03-15 15:07] LABS: Lyme Antibody Screen, EIA Negative (Negative)
--- NOTE | 2024-03-15 15:53 | W.PN.HOSP.TC ---
Addendum entered and electronically signed by Sherly Gee MD 03/15/24 19:06:
I saw and evaluated the patient independently. I reviewed the resident�s note and agree with findings and plan as documented by Dr. Morgan.
GENERAL: well developed, well nourished, female in no apparent distress
HEENT: NC/AT--no O2 requirements
HEART: irreg irreg
LUNGS : clear to auscultation bilaterally
ABDOM: soft, nontender, nondistended, + bowel sounds
EXT: no cyanosis, clubbing, or edema
NEUROLOGIC: tremor present--grossly intact otherwise
new onset paroxysmal Atrial Fibrillation--unclear trigger--off cardizem drip and now on oral cardizem, off IV heparin and now on Eliquis-- ECHO with preserved EF but severe mitral regurg---D-Dimer elevated but CT PE neg--MARKOS/CV deferred--increased
diltiazem for better rate control
Severe Mitral Regurgitation--Cardiology assessment is determined that there is a central mitral regurgitation jet, with dilated left atrium and annulus--Cardiology has discussed topics of surgical mitral valve repair versus MitraClip
Fevers-- unclear cause--possibly viral--pt did get insect bite-- Babesia smear negative----COVID swab negative--CXR with atelectasis NO pna--resolved
Hypothyroid--with hx of Sweta's--Elevated TSH levels--No medication adjustments at the present time. May consider adjustment of levothyroxine if thyroid levels remain abnormal following resolution of presenting medical issue--Recommend repeat
outpatient lab testing for fine-tuning of medication.
hyponatremia -- noted
Elevated liver function tests: Monitoring--AST is 71 and ALT is 56 which is elevated--Possibly due to infectious process--improving
Reduced appetite--Regular diet ordered--Consider dietary consult.
Ongoing autoimmune disease including Sjogren's, Sweta's, ocular myasthenia gravis, Raynaud's phenomenon---Will reach out to Dr. Costa in regards to recent blood work conducted to share with the patient. Lab data may be able to help be a clear
picture of the patient's ongoing autoimmune disease
DVT proph
code status -- FULL CODE
Original Note:
Today's Communication/Plan
-
Cardiology assessment is determined that the patient suffers from paroxysmal atrial fibrillation with rapid ventricular response. Instead of MARKOS/DCCV they are currently opting for rate control. Diltiazem has been increased to 180 mg twice daily
and Eliquis 5 mg twice daily has been started. Patient also discussed the risks and benefits of surgical mitral valve repair versus MitraClip with cardiology.
Assessment / Plan
Assessment / Plan
Impression + Plan:
- Paroxysmal Atrial fibrillation with rapid ventricular response: Monitoring
Patient admitted to the IVU for further treatment and monitoring
Cardizem drip administered for rate control - Continue
Heparin drip discontinued, Eliquis 5 mg twice daily started.
Cardiology consult ordered -assessment determined that the patient is diagnosed with atrial fibrillation with rapid ventricular response -diagnosis updated. [id number] score was at least 4 (age 75 or more, vascular disease, female gender).
Patient has been transitioned to apixaban 5 mg p.o. twice daily. Rate control is continued with Cardizem. Diltiazem was increased to 180 mg twice daily. There was consideration of possible MARKOS cardioversion but the patient went in and out of
atrial fibrillation overnight. This morning the patient was back in atrial fibrillation and cardiology has opted to focus on rate control for the time being.
Echocardiogram ordered -echocardiogram showed a normal left ventricular size, wall thickness and systolic function. There was no regional wall motion abnormalities seen. Left ventricular ejection fraction was 60 to 65%. Diastolic function was
indeterminate due to atrial fibrillation. There was moderate tricuspid regurgitation and mild aortic regurgitation. Severe mitral regurgitation detected.
Troponins within normal limits
Elevated D-dimer of 2.65 on admission
- Severe Mitral Regurgitation:
Cardiology assessment is determined that there is a central mitral regurgitation jet, with dilated left atrium and annulus
Cardiology has discussed topics of surgical mitral valve repair versus MitraClip
- Coronary artery calcification: Stable and Monitoring
Chest is pain-free
Fasting lipid panel in the morning
Patient started on rosuvastatin 10 mg every morning
Patient can stop her aspirin in favor of apixaban
- Fever like symptoms: Monitoring
Urine cultures ordered -no significant growth
Considering blood cultures�on hold
COVID swab negative
Babesia microti labs ordered -pending
Lyme disease IgG and IgM-pending
- Elevated TSH levels: Monitoring
No medication adjustments at the present time. May consider adjustment of levothyroxine if thyroid levels remain abnormal following resolution of presenting medical issue.
Recommend repeat outpatient lab testing for fine-tuning of medication.
- Elevated liver function tests: Monitoring
AST is 51 and ALT is 85 which is elevated.
Possibly due to infectious process. Will monitor.
- Reduced appetite: Monitoring
Regular diet ordered.
Consider dietary consult.
-Anxiety/difficulty sleeping:
Patient is struggling to sleep at night and finds herself thinking about and worrying about her hospital stay.
0.5 mg of lorazepam added at night
- Ongoing autoimmune disease including Sjogren's, Sweta's, ocular myasthenia gravis, Raynaud's phenomenon: Monitoring
Left multiple phone messages with Dr. Costa's office in hopes of getting patient's outpatient lab work. Fax number left on answering machine. Will continue to try and reach their office. Patient provided urine analysis through patient portal.
Will continue to check patient portal for additional lab updates.
-
Anticipated Discharge: Within 24 hours
Subjective/Interval History
-
Date of Service: March 15, 2024
Met with patient at the bedside. She states that she feels about the same as she did yesterday and continues to feel somewhat anxious about her condition. She spoke to cardiology about about treatment options for her atrial fibrillation with rapid
ventricular response. Initial plans were for MARKOS/DCCV but cardiology ruled that out due to the A-fib being paroxysmal overnight. She is aware of her mitral regurgitation and intends to follow-up with cardiology.
Objective Data
-
Labs:
Laboratory Results
03/15/24
04:20
WBC 8.1
Hgb 13.5
Hct 37.9
Plt Count 438 H
Sodium 136
Potassium 4.2
Chloride 103
Carbon Dioxide 22
BUN 11
Creatinine 0.4 L
Glucose 96
Calcium 9.3
Total Bilirubin 0.5
AST 51 H
ALT 85 H
Alkaline Phosphatase 129 H
Vital Signs:
Vital Signs
Temp Pulse Resp BP Pulse Ox
97.7 F 103 18 140/61 97
03/15/24 15:36 03/15/24 12:00 03/15/24 15:36 03/15/24 11:56 03/15/24 15:36
I&O
03/14/24 03/15/24 03/16/24
06:59 06:59 06:59
Intake Total 720 / 720 390 / 390 240 / 240
Balance 720 / 720 390 / 390 240 / 240
Review of Systems
-
History Source: Patient
Constitutional: Reports No Symptoms
EENT: Reports No Symptoms Reported
Respiratory: Reports No Symptoms
Cardiac: Reports No Symptoms
Abdomen/GI: Reports No Symptoms
Breast: Reports No Symptoms
Genitourinary: Reports No Symptoms
Musculoskeletal: Reports No Symptoms
Skin: Reports No Symptoms
Neuro: Reports No Symptoms
Endocrine: Reports No Symptoms
Hematologic / Lymphatic: Reports No Symptoms
Allergy / Immunology: Reports No Symptoms
Psych: Reports Anxious
Physical Exam
-
General: Well Developed, Well Nourished, No Apparent Distress and Comfortable
HEENT: Normocephalic, Atraumatic and Moist Mucous Membranes
Respiratory: Clear to Auscultation
Cardiac: Irregular Rhythm
Breast: Deferred by me
GI: Soft, Nontender, Nondistended and Normal Bowel Sounds
Rectal: Deferred by Provider
Genito-urinary: Deferred by me
Musculoskeletal: No Clubbing, No Cyanosis and No Edema
Skin: Warm and Dry
Neuro: Awake, Alert, Oriented, AO x 3 and Nonfocal/Grossly Intact
[2024-03-15] MEDS: CRESTOR PO (17:51)
--- NOTE | 2024-03-15 19:05 | PTCARENOTE ---
Pt in and out of sinus rhythm/atrial fib throughout the day at a rate @90-120 with activity. Diltiazem increased. Pt denies any discomfort, up independently in her room with a steady gait.
--- NOTE | 2024-03-15 19:22 | PTCARENOTE ---
Pt. received at change of shift. Pt. sitting in chair. No complaints of pain. AOx3. BP stable. Tele showing HR in Afib in the 110s. Continuing to monitor the pt.
[2024-03-15] MEDS: CARDIZEM CD 180 MG PO (19:29)
[2024-03-15] MEDS: ATIVAN PO (22:12)
[2024-03-15] MEDS: VITAMIN D3 (cholecalciferol) 25 MCG PO (22:12)
[2024-03-16] VITALS (8 sets, daily range): BP systolic 127–164; BP diastolic 61–108
[2024-03-16] MEDS: SYNTHROID 25 MCG PO (03:29)
--- NOTE | 2024-03-16 04:05 | PTCARENOTE ---
Pt. seen in room, awake reading her book. Pt. AOx3. VS WNL. No complaints of pain at this time. AM lab work completed. Awaiting results. Continuing to monitor the patient.
[2024-03-16 04:08] LABS: Hematocrit 37.2 % (37.0-47.0); Hemoglobin 13.3 g/dL (12.0-16.0); Mean Corp Hgb Conc. 35.8 g/dL (33.0-37.0); Mean Corpuscular Hgb 30.9 pg (27.0-31.0); Mean Corpuscular Volume 86.5 fL (81.0-99.0); Mean Platelet Volume 9.3 fL (7.4-10.4); Platelet Count 475 10^3/uL (130-400); Red Cell Dist. Width 13.7 % (11.5-14.5); White Blood Cell Count 9.3 10^3/uL (4.8-10.8)
[2024-03-16 04:28] LABS: ALT (SGPT) 66 U/L (0-35); AST (SGOT) 40 U/L (14-36); Albumin 3.6 g/dl (3.5-5.0); Alkaline Phosphatase 121 U/L (38-126); Blood Urea Nitrogen 14 mg/dl (7-17); Calcium 9.1 mg/dl (8.4-10.2); Carbon Dioxide 19 mmol/L (22-30); Chloride 105 mmol/L (98-107); Estimated Creatinine Clearance 70 ml/min; Glucose 104 mg/dl (70-99); Magnesium 1.9 mg/dl (1.6-2.3); Potassium 4.1 mmol/L (3.5-5.1); Sodium 136 mmol/L (135-145); Total Bilirubin 0.5 mg/dl (0.2-1.3); Total Protein 7.1 g/dl (6.3-8.2); eGFR > 60.00
--- NOTE | 2024-03-16 07:44 | W.PN.HOSP.TC ---
Addendum entered and electronically signed by Sherly Gee MD 03/16/24 14:01:
I saw and evaluated the patient independently. I reviewed the resident�s note and agree with findings and plan as documented by Dr. Morgan.
GENERAL: well developed, well nourished, female in no apparent distress
HEENT: NC/AT--no O2 requirements
HEART: irreg irreg--tachycardia
LUNGS : clear to auscultation bilaterally
ABDOM: soft, nontender, nondistended, + bowel sounds
EXT: no cyanosis, clubbing, or edema
NEUROLOGIC: tremor present--grossly intact otherwise
new onset paroxysmal Atrial Fibrillation--unclear trigger, worse with anxiety-- oral cardizem/Eliquis-- ECHO with preserved EF but severe mitral regurg---D-Dimer elevated but CT PE neg--MARKOS/CV deferred--increased diltiazem for better rate
control--added xanax for anxiety--hopeful d/c in AM
Severe Mitral Regurgitation--Cardiology assessment is determined that there is a central mitral regurgitation jet, with dilated left atrium and annulus--Cardiology has discussed topics of surgical mitral valve repair versus MitraClip
Fevers-- unclear cause--possibly viral--pt did get insect bite-- Babesia smear negative----COVID swab negative--CXR with atelectasis NO pna--resolved
Hypothyroid--with hx of Sweta's--Elevated TSH levels--No medication adjustments at the present time. May consider adjustment of levothyroxine if thyroid levels remain abnormal following resolution of presenting medical issue--Recommend repeat
outpatient lab testing for fine-tuning of medication.
hyponatremia -- noted
Elevated liver function tests: Monitoring--AST is 71 and ALT is 56 which is elevated--Possibly due to infectious process--improving
Reduced appetite--Regular diet ordered--Consider dietary consult.
Ongoing autoimmune disease including Sjogren's, Sweta's, ocular myasthenia gravis, Raynaud's phenomenon---Will reach out to Dr. Costa in regards to recent blood work conducted to share with the patient. Lab data may be able to help be a clear
picture of the patient's ongoing autoimmune disease
DVT proph
code status -- FULL CODE
Original Note:
Today's Communication/Plan
-
We will continue to monitor the patient and determine if she is at a stable baseline for rate control. Once stable we may move forward with discharge planning. Patient remains anxious and it is affecting her quality of sleep along with her comfort
during her hospital stay. 0.25 alprazolam every 8 hours as needed given to the patient for ongoing anxiety. Patient plans to continue to follow-up with the cardiologists who followed her in the inpatient setting.
Assessment / Plan
Assessment / Plan
Impression + Plan:
- Paroxysmal Atrial fibrillation with rapid ventricular response: Monitoring
Patient admitted to the IVU for further treatment and monitoring
Cardizem drip administered for rate control - Continue
Heparin drip discontinued, Eliquis 5 mg twice daily started.
Cardiology consult ordered -assessment determined that the patient is diagnosed with atrial fibrillation with rapid ventricular response -diagnosis updated. [id number] score was at least 4 (age 75 or more, vascular disease, female gender). Rate
control is continued with Cardizem - increased to 180 mg twice daily. There was consideration of possible MARKOS cardioversion but the patient went in and out of atrial fibrillation overnight. Cardiology has opted to focus on rate control for the
time being. Continuing monitoring for stable rate control.
Echocardiogram ordered -echocardiogram showed a normal left ventricular size, wall thickness and systolic function. There was no regional wall motion abnormalities seen. Left ventricular ejection fraction was 60 to 65%. Diastolic function was
indeterminate due to atrial fibrillation. There was moderate tricuspid regurgitation and mild aortic regurgitation. Severe mitral regurgitation detected.
Troponins within normal limits
Elevated D-dimer of 2.65 on admission
Patient feels comfortable with the current cardiology group that is following her here in the inpatient setting. She is aware that she will need to undergo cardiac catheterization prior to valvular heart surgery and will arrange it in the
outpatient setting.
- Severe Mitral Regurgitation:
Cardiology assessment is determined that there is a central mitral regurgitation jet, with dilated left atrium and annulus
Cardiology has discussed topics of surgical mitral valve repair versus MitraClip
- Coronary artery calcification: Stable and Monitoring
Chest is pain-free
Fasting lipid panel in the morning
Patient started on rosuvastatin 10 mg every morning
Patient can stop her aspirin in favor of apixaban
- Fever like symptoms: Monitoring
Urine cultures ordered -no significant growth
Considering blood cultures�on hold
COVID swab negative
Babesia microti labs ordered -Negative
Lyme disease IgG and IgM-pending
- Elevated TSH levels: Monitoring
No medication adjustments at the present time. May consider adjustment of levothyroxine if thyroid levels remain abnormal following resolution of presenting medical issue.
Recommend repeat outpatient lab testing for fine-tuning of medication.
- Elevated liver function tests: Monitoring
AST is 40 and ALT is 66 and continues to trend downward
Possibly due to infectious process. Will monitor.
- Reduced appetite: Monitoring
Regular diet ordered.
Consider dietary consult.
-Anxiety/difficulty sleeping:
Patient is struggling to sleep at night and finds herself thinking about and worrying about her hospital stay.
0.5 mg of lorazepam added at night
0.25 alprazolam every 8 hours as needed ordered
- Ongoing autoimmune disease including Sjogren's, Sweta's, ocular myasthenia gravis, Raynaud's phenomenon: Monitoring
Left multiple phone messages with Dr. Costa's office in hopes of getting patient's outpatient lab work. Fax number left on answering machine. Will continue to try and reach their office. Patient provided urine analysis through patient portal.
Will continue to check patient portal for additional lab updates.
DVT prophylaxis: apixaban
Full code
Anticipated Discharge: 24 - 48 hours
Subjective/Interval History
-
Date of Service: March 16, 2024
Met with patient at the bedside. Overall, she states that she feels about the same as she did yesterday. Patient hopes to be discharged in the near future but is aware that she needs to be rate controlled prior to discharge. She feels anxious and
worries whether this is a major contributing factor to her increased heart rate.
Objective Data
-
Labs:
Laboratory Results
03/16/24
03:37
WBC 9.3
Hgb 13.3
Hct 37.2
Plt Count 475 H
Sodium 136
Potassium 4.1
Chloride 105
Carbon Dioxide 19 L
BUN 14
Creatinine 0.4 L
Glucose 104 H
Calcium 9.1
Total Bilirubin 0.5
AST 40 H
ALT 66 H
Alkaline Phosphatase 121
Vital Signs:
Vital Signs
Temp Pulse Resp BP Pulse Ox
97.9 F 93 20 127/76 98
03/16/24 07:21 03/16/24 04:00 03/16/24 07:21 03/16/24 03:28 03/16/24 07:21
I&O
03/15/24 03/16/24 03/17/24
06:59 06:59 06:59
Intake Total 390 / 390 390 / 390
Balance 390 / 390 390 / 390
Review of Systems
-
History Source: Patient
EENT: Reports No Symptoms Reported
Respiratory: Reports No Symptoms
Cardiac: Reports No Symptoms
Abdomen/GI: Reports No Symptoms
Breast: Reports No Symptoms
Genitourinary: Reports No Symptoms
Musculoskeletal: Reports No Symptoms
Skin: Reports No Symptoms
Neuro: Reports No Symptoms
Endocrine: Reports No Symptoms
Hematologic / Lymphatic: Reports No Symptoms
Allergy / Immunology: Reports No Symptoms
Physical Exam
-
General: Well Developed, Well Nourished and Comfortable
HEENT: Normocephalic, Atraumatic and Moist Mucous Membranes
Respiratory: Clear to Auscultation
Cardiac: Irregular Rhythm
Breast: Deferred by me
GI: Nontender, Nondistended and Normal Bowel Sounds
Rectal: Deferred by Provider
Genito-urinary: Deferred by me
Musculoskeletal: No Clubbing, No Cyanosis and No Edema
Skin: Warm and Dry
Neuro: Nonfocal/Grossly Intact
[2024-03-16] MEDS: B COMPLEX w/VITAMIN C 1 CAPLET PO (07:52)
[2024-03-16] MEDS: THERAGRAN 1 TABLET PO (07:52)
[2024-03-16] MEDS: VITAMIN C 500 MG PO (07:52)
[2024-03-16] MEDS: OSCAL CAL 500 500 MG PO ×2 (07:52→20:01)
[2024-03-16] MEDS: CARDIZEM CD 180 MG PO ×2 (07:53→20:01)
[2024-03-16] MEDS: ELIQUIS 5 MG PO ×2 (07:53→20:01)
--- NOTE | 2024-03-16 09:51 | W.PN.CD ---
Today's Communication / Plan
-
-Patient keeps going in and out of atrial fibrillation; primarily asymptomatic.
-Cardizem CD dose was increased from 120 mg daily yesterday to 180 mg twice daily; continue that dose and continue manager monitoring for now.
-Will need to undergo cardiac catheterization prior to valvular heart surgery; will arrange as outpatient.
-Will reevaluate tomorrow.
Impression / Plan
-
Atrial fibrillation with rapid ventricular response, new diagnosis--paroxysmal
-Patient keeps going in and out of atrial fibrillation; primarily asymptomatic.
-echo with preserved EF, but significant valve disease (see below)
-initial plans for MARKOS/DCCV, but A fib was paroxysmal as above.
-Cardizem CD dose was increased from 120 mg daily yesterday to 180 mg twice daily; continue that dose and continue manager monitoring for now.
-[id number]: score at least 4 (age 75 or more, Vascular disease, female gender): Continue Eliquis 5 mg BID.
Severe MR, mild/moderate TR
-central MR jet, with dilated LA and annulus
-will plan for MARKOS as outpatient once recovers from hospitalization; surgical MV repair vs MitraClip.
Coronary artery calcification
-Chest pain free
-Fasting lipid panel in a.m.
-Start rosuvastatin 10 mg every evening
-She can stop her aspirin in favor of apixaban
-Will need to undergo cardiac catheterization prior to valvular heart surgery; will arrange as outpatient.
Fevers, per primary service
Sweta's thyroiditis, on levothyroxine, TSH elevated, T4 normal.
COPD
Sjogren's
Ocular myasthenia gravis
Raynaud's phenomenon
Physical Exam
Vital Signs/Labs
Vital Signs
Temp Pulse Resp BP Pulse Ox
97.9 F 117 20 161/76 96
03/16/24 07:21 03/16/24 07:50 03/16/24 07:21 03/16/24 07:23 03/16/24 07:56
03/15/24 03/16/24 03/17/24
06:59 06:59 06:59
Actual Weight 56.7 kg 56.1 kg
03/16/24 03:37
03/16/24 03:37
PT 14.3 Sec (11.4-14.6) 03/13/24 20:53
INR 1.13 03/13/24 20:53
APTT Cancelled 03/14/24 17:30
Magnesium 1.9 mg/dl (1.6-2.3) 03/16/24 03:37
Triglycerides 72 mg/dl (10-149) 03/15/24 04:20
LDL Cholesterol, Calc 86 mg/dl 03/15/24 04:20
VLDL Cholesterol, Calc 14 mg/dl (0-30) 03/15/24 04:20
HDL Cholesterol 41 mg/dl 03/15/24 04:20
TSH 5.19 uIU/ml (0.47-4.68) H 03/13/24 12:22
Free T4 1.55 ng/dl (0.78-2.19) 03/14/24 03:12
LAB Results
03/13/24
14:27
Troponin I < 0.012
Physical Exam
Constitutional: No acute distress and Comfortable
EENT: Anicteric
Cardiovascular: Rhythm & rate is regular, Pedal edema is absent, Systolic murmur present (2/6) and S1S2 is normal
Respiratory: Respiratory effort normal and Lungs clear to auscul.
GI: Soft
Neuro/Psych: AO x 3
Other: Skin (Warm, dry, intact)
Data Reviewed
-
Date of Service: March 16, 2024
EKG: Tracing Personally Visualized and interpreted (Telemetry: Sinus rhythm, PAF with RVR to 140s)
Echo: Report Reviewed by me (Severe MR, moderate TR, mild AR)
Medical Tests (PFT, Pathology etc): Discussed with Physician (Primary Hospitalist team) and Discussed with Patient
Labs: Labs Reviewed by me
[2024-03-16] MEDS: XANAX 0.25 MG PO (10:03)
--- NOTE | 2024-03-16 10:25 | CM ---
Chart reviewed. Patient is independent of ADLS, lives with her disabled in a [address], 2 [address], 0 [address]ME. Plan is for the patient to return home. CM to follow
--- NOTE | 2024-03-16 19:23 | PTCARENOTE ---
Pt with uncontrolled atrial fib up to 160's in the morning. Pt anxious and disappointed about staying longer, given xanax and rfelaxed with her son. Heart rate @90 all afternoon, sinus rhythm for 2 hourssss, otherwise atrial fib. Pt up walking in
halls , remained in 90's while walking.
[2024-03-16] MEDS: CRESTOR PO (19:29)
[2024-03-16] MEDS: ATIVAN 0.5 MG PO (22:17)
[2024-03-16] MEDS: VITAMIN D3 (cholecalciferol) 25 MCG PO (22:17)
[2024-03-17 02:03] LABS: Babesia microti IgG < 1:16 (< 1:16); Babesia microti IgM <1:20 (<1:20)
[2024-03-17 04:40] VITALS: BP 143/84
[2024-03-17 04:59] VITALS: BMI 19.8
[2024-03-17] MEDS: SYNTHROID 25 MCG PO (05:51)
[2024-03-17 06:19] LABS: Hematocrit 36.2 % (37.0-47.0); Hemoglobin 12.8 g/dL (12.0-16.0); Mean Corp Hgb Conc. 35.4 g/dL (33.0-37.0); Mean Corpuscular Volume 84.8 fL (81.0-99.0); Mean Platelet Volume 9.1 fL (7.4-10.4); Platelet Count 508 10^3/uL (130-400); Red Blood Cell Count 4.27 10^6/uL (4.20-5.40); Red Cell Dist. Width 13.9 % (11.5-14.5); White Blood Cell Count 10.4 10^3/uL (4.8-10.8)
[2024-03-17 06:36] LABS: ALT (SGPT) 65 U/L (0-35); AST (SGOT) 47 U/L (14-36); Albumin 3.5 g/dl (3.5-5.0); Alkaline Phosphatase 94 U/L (38-126); Blood Urea Nitrogen 14 mg/dl (7-17); Carbon Dioxide 22 mmol/L (22-30); Chloride 104 mmol/L (98-107); Estimated Creatinine Clearance 69 ml/min; Glucose 94 mg/dl (70-99); Potassium 4.4 mmol/L (3.5-5.1); Sodium 134 mmol/L (135-145); Total Bilirubin 0.5 mg/dl (0.2-1.3); Total Protein 6.8 g/dl (6.3-8.2); eGFR > 60.00
[2024-03-17 07:28] VITALS: BP 135/96
[2024-03-17] MEDS: B COMPLEX w/VITAMIN C 1 CAPLET PO (08:45)
[2024-03-17] MEDS: THERAGRAN 1 TABLET PO (08:45)
[2024-03-17] MEDS: ELIQUIS 5 MG PO (08:46)
[2024-03-17] MEDS: OSCAL CAL 500 500 MG PO (08:46)
[2024-03-17] MEDS: CARDIZEM CD 180 MG PO (08:46)
[2024-03-17] MEDS: VITAMIN C 500 MG PO (08:46)
[2024-03-17] MEDS: XANAX 0.25 MG PO (08:48)
--- NOTE | 2024-03-17 09:34 | W.PN.HOSP.TC ---
Addendum entered and electronically signed by Sherly Gee MD 03/17/24 13:47:
I saw and evaluated the patient independently. I reviewed the resident�s note and agree with findings and plan as documented by Dr. Morgan.
GENERAL: well developed, well nourished, female in no apparent distress
HEENT: NC/AT--no O2 requirements
HEART: irreg irreg--rate better
LUNGS : clear to auscultation bilaterally
ABDOM: soft, nontender, nondistended, + bowel sounds
EXT: no cyanosis, clubbing, or edema
NEUROLOGIC: tremor present--grossly intact otherwise
new onset paroxysmal Atrial Fibrillation--unclear trigger, worse with anxiety-- oral cardizem/Eliquis-- ECHO with preserved EF but severe mitral regurg---D-Dimer elevated but CT PE neg--MARKOS/CV deferred--increased diltiazem for better rate
control--added xanax for anxiety--OK for d/c by cards
Severe Mitral Regurgitation--Cardiology assessment is determined that there is a central mitral regurgitation jet, with dilated left atrium and annulus--Cardiology has discussed topics of surgical mitral valve repair versus MitraClip
Fevers-- unclear cause--possibly viral--pt did get insect bite-- Babesia smear negative----COVID swab negative--CXR with atelectasis NO pna--resolved
Hypothyroid--with hx of Sweta's--Elevated TSH levels--No medication adjustments at the present time. May consider adjustment of levothyroxine if thyroid levels remain abnormal following resolution of presenting medical issue--Recommend repeat
outpatient lab testing for fine-tuning of medication.
hyponatremia -- noted
Elevated liver function tests: Monitoring--AST is 71 and ALT is 56 which is elevated--Possibly due to infectious process--improving
Reduced appetite--Regular diet ordered--Consider dietary consult.
Ongoing autoimmune disease including Sjogren's, Sweta's, ocular myasthenia gravis, Raynaud's phenomenon---Will reach out to Dr. Costa in regards to recent blood work conducted to share with the patient. Lab data may be able to help be a clear
picture of the patient's ongoing autoimmune disease
DVT proph
code status -- FULL CODE
Original Note:
Today's Communication/Plan
-
cardiology believes the patient is under adequate rate control and is appropriate for discharge at the present time. They recommend the patient follows up with them in the outpatient setting for further management atrial fibrillation and potential
consideration of mitral valve surgery in the future.
Assessment / Plan
Assessment / Plan
Impression + Plan:
- Paroxysmal Atrial fibrillation with rapid ventricular response: Monitoring
Patient admitted to the IVU for further treatment and monitoring
Cardizem drip administered for rate control - Continue
Heparin drip discontinued, Eliquis 5 mg twice daily started.
Cardiology consult ordered -assessment determined that the patient is diagnosed with atrial fibrillation with rapid ventricular response -diagnosis updated. [id number] score was at least 4 (age 75 or more, vascular disease, female gender). Rate
control is continued with Cardizem - increased to 180 mg twice daily. There was consideration of possible MARKOS cardioversion but the patient went in and out of atrial fibrillation overnight. Cardiology has opted to focus on rate control for the
time being. Continuing monitoring for stable rate control. - cardiology believes that this patient is appropriate for follow up in the outpatient setting.
Echocardiogram ordered -echocardiogram showed a normal left ventricular size, wall thickness and systolic function. There was no regional wall motion abnormalities seen. Left ventricular ejection fraction was 60 to 65%. Diastolic function was
indeterminate due to atrial fibrillation. There was moderate tricuspid regurgitation and mild aortic regurgitation. Severe mitral regurgitation detected.
Troponins within normal limits
Elevated D-dimer of 2.65 on admission
Patient feels comfortable with the current cardiology group that is following her here in the inpatient setting. She is aware that she will need to undergo cardiac catheterization prior to valvular heart surgery and will arrange it in the
outpatient setting.
- Severe Mitral Regurgitation:
Cardiology assessment is determined that there is a central mitral regurgitation jet, with dilated left atrium and annulus
Cardiology has discussed topics of surgical mitral valve repair versus MitraClip
- Coronary artery calcification: Stable and Monitoring
Chest is pain-free
Fasting lipid panel in the morning
Patient started on rosuvastatin 10 mg every morning
Patient can stop her aspirin in favor of apixaban
- Fever like symptoms: Monitoring
Urine cultures ordered -no significant growth
Considering blood cultures�on hold
COVID swab negative
Babesia microti labs ordered -Negative
Lyme disease IgG and IgM-Negative
- Elevated TSH levels: Monitoring
No medication adjustments at the present time. May consider adjustment of levothyroxine if thyroid levels remain abnormal following resolution of presenting medical issue.
Recommend repeat outpatient lab testing for fine-tuning of medication.
- Elevated liver function tests: Monitoring
AST is 47 and ALT is 65 and continues to trend downward
Possibly due to infectious process. Will monitor.
- Reduced appetite: Monitoring
Regular diet ordered.
Consider dietary consult.
-Anxiety/difficulty sleeping:
Patient is struggling to sleep at night and finds herself thinking about and worrying about her hospital stay.
0.5 mg of lorazepam added at night
0.25 alprazolam every 8 hours as needed ordered
- Ongoing autoimmune disease including Sjogren's, Sweta's, ocular myasthenia gravis, Raynaud's phenomenon: Monitoring
Left multiple phone messages with Dr. Costa's office in hopes of getting patient's outpatient lab work. Fax number left on answering machine. Will continue to try and reach their office. Patient provided urine analysis through patient portal.
Will continue to check patient portal for additional lab updates.
DVT prophylaxis: apixaban
Full code
Anticipated Discharge: Today
Subjective/Interval History
-
Date of Service: March 17, 2024
met with patient at the bedside. She feels slightly better than she did yesterday and is less anxious than she was yesterday evening she had an opportunity to walk the hallway and found that she enjoyed the exercise. she still hopes to be discharged
soon and hopes that her fibrillation becomes better controlled. patient slept well last night.
Objective Data
-
Labs:
Laboratory Results
03/17/24
04:48
WBC 10.4
Hgb 12.8
Hct 36.2 L
Plt Count 508 H
Sodium 134 L
Potassium 4.4
Chloride 104
Carbon Dioxide 22
BUN 14
Creatinine 0.4 L
Glucose 94
Calcium 9.0
Total Bilirubin 0.5
AST 47 H
ALT 65 H
Alkaline Phosphatase 94
Vital Signs:
Vital Signs
Temp Pulse Resp BP Pulse Ox
97.4 F 118 18 135/96 97
03/17/24 07:26 03/17/24 07:40 03/17/24 07:26 03/17/24 07:28 03/17/24 08:52
I&O
03/16/24 03/17/24 03/18/24
06:59 06:59 06:59
Intake Total 390 / 390 480 / 480 180 / 180
Balance 390 / 390 480 / 480 180 / 180
Review of Systems
-
History Source: Patient
Constitutional: Reports No Symptoms
EENT: Reports No Symptoms Reported
Respiratory: Reports No Symptoms
Cardiac: Reports Palpitations
Abdomen/GI: Reports No Symptoms
Breast: Reports No Symptoms
Genitourinary: Reports No Symptoms
Musculoskeletal: Reports No Symptoms
Skin: Reports No Symptoms
Neuro: Reports No Symptoms
Endocrine: Reports No Symptoms
Hematologic / Lymphatic: Reports No Symptoms
Allergy / Immunology: Reports No Symptoms
Physical Exam
-
General: Well Developed, Well Nourished, No Apparent Distress and Comfortable
HEENT: Normocephalic, Atraumatic and Moist Mucous Membranes
Respiratory: Clear to Auscultation
Cardiac: Irregular Rhythm
Breast: Deferred by me
GI: Soft, Nontender, Nondistended and Normal Bowel Sounds
Rectal: Deferred by Provider
Genito-urinary: Deferred by me
Musculoskeletal: No Clubbing, No Cyanosis and No Edema
Skin: Warm and Dry
Neuro: Nonfocal/Grossly Intact
Psych: Anxious
--- NOTE | 2024-03-17 10:08 | W.PN.CD ---
Today's Communication / Plan
-
continue diltiazem 180mg bid and eliquis 5mg bid
discharge planning
we will arrange for outpatient follow up with us
Impression / Plan
-
Atrial fibrillation with rapid ventricular response, new diagnosis--paroxysmal, and back in NSR this AM
-echo with preserved EF, but significant valve disease (see below)
-[id number]: score at least 4 (age 75 or more, Vascular disease, female gender): Continue Eliquis 5 mg BID.
-continue diltiazem 180mg bid
Severe MR, mild/moderate TR
-central MR jet, with dilated LA and annulus
-will plan for MARKOS and cath as outpatient once recovers from hospitalization; surgical MV repair vs MitraClip.
Coronary artery calcification
-Chest pain free
-Start rosuvastatin 10 mg every evening
-She can stop her aspirin in favor of apixaban
Fevers, per primary service
Sweta's thyroiditis, on levothyroxine, TSH elevated, T4 normal.
COPD
Sjogren's
Ocular myasthenia gravis
Raynaud's phenomenon
Physical Exam
Vital Signs/Labs
Vital Signs
Temp Pulse Resp BP Pulse Ox
97.4 F 118 18 135/96 97
03/17/24 07:26 03/17/24 07:40 03/17/24 07:26 03/17/24 07:28 03/17/24 08:52
03/16/24 03/17/24 03/18/24
06:59 06:59 06:59
Actual Weight 56.1 kg 55.5 kg
03/17/24 04:48
03/17/24 04:48
PT 14.3 Sec (11.4-14.6) 03/13/24 20:53
INR 1.13 03/13/24 20:53
APTT Cancelled 03/14/24 17:30
Magnesium 1.9 mg/dl (1.6-2.3) 03/16/24 03:37
Triglycerides 72 mg/dl (10-149) 03/15/24 04:20
LDL Cholesterol, Calc 86 mg/dl 03/15/24 04:20
VLDL Cholesterol, Calc 14 mg/dl (0-30) 03/15/24 04:20
HDL Cholesterol 41 mg/dl 03/15/24 04:20
TSH 5.19 uIU/ml (0.47-4.68) H 03/13/24 12:22
Free T4 1.55 ng/dl (0.78-2.19) 03/14/24 03:12
Physical Exam
Constitutional: No acute distress and Comfortable
EENT: Moist mucous membranes
Cardiovascular: Rhythm & rate is regular, Pedal edema is absent, JVD pressure is normal and Systolic murmur present
Respiratory: Respiratory effort normal and Lungs clear to auscul.
GI: Soft and Distention absent
Neuro/Psych: AO x 3
Data Reviewed
-
Date of Service: March 17, 2024
EKG: Other (Tele: SR 90s)
Labs: Labs Reviewed by me
[2024-03-17 12:02] VITALS: BP 143/59
--- NOTE | 2024-03-17 13:33 | W.DCSUMMARY ---
Addendum entered and electronically signed by Sherly Gee MD 03/17/24 15:25:
Read, reviewed, and agree. See same day progress note for additional details. Time spent coordinating care, DC planning, review of DC plan of care with resident, transition of care, review of records in EMR, med rec, consults, notes, d/w
consultants, nursing, family, and CM = 39 minutes.
Original Note:
Discharge Summary
Discharge Data
Date of Admission: 03/13/24
Date of Discharge: 03/17/24
-
Pending Results: No
Hospital Course
This patient is a 78-year-old female who presented to the emergency department stating that last Wednesday she was 'not feeling well' and associated with fevers and bodyaches which gradually resolved by Wednesday. She noted that on February 27 she suffered
2 bug bites on her left foot and noticed a small area of redness. she saw her primary care provider on the following Wednesday and and had a COVID, flu, Lyme, and RSV testing conducted which were all negative. 6 days prior to her presentation to
the emergency department she noticed that her heart was racing and read as high on her pulse oximeter at home for at least a few hours before resolving. She again noticed it the the night prior to her presentation at the emergency department. She
denied palpitations. Patient had a bout of diarrhea on Wednesday afternoon that continued into Wednesday before resolving. Her appetite decreased. Patient also noted mild discomfort in the front of her chest and less so on the back specifically only
with a deep breath the pain is still present but much less. She thought that she may have hurt her back after a fall walking upstairs. When she fell she did not hit her head or lose consciousness. She denied any dyspnea, palpitations, dizziness,
lightheadedness, nausea, vomiting, rash, joint pain or any other complaints. Patient got a [id number] score of 3 in the emergency department. EKG conducted showed an irregular rhythm suspicious for atrial fibrillation with rapid ventricular
response. The patient was subsequently admitted to [facility] for atrial fibrillation.
Initially on admission, and patient was started on heparin for anticoagulation and cardizem was started. Cardiology was consulted who continued to follow the patient throughout her hospital course. An echocardiogram was ordered, which discovered
severe mitral regurgitation. Troponins were within normal limits. Blood smear for parasites was ordered and was found to be negative. Patient's original dose of 120 mg of cardizem was not sufficient to maintain rate control for the patient so she
was increased to 180 mg. This adjustment was better able to control her rate. she felt anxious during much of hospital stay and was offered a small amount of Xanax to help with anxiety and restlessness. as a rate control improved, her heart rate
returned to around 100 and she was no longer able to feel as if her heart was racing at times. Patient was informed about her paroxysmal atrial fibrillation and her severe mitral regurgitation. Cardiology spoke to the patient about the possibility
of requiring a mitral valve repair or replacement, and she stated that she would follow up with them in the outpatient setting after discharge.
The patient has reached maximal benefit from this hospital stay and is appropriate for discharge at the present time. She is aware of her severe mitral regurgitation and paroxysmal atrial fibrillation. She intends to follow up with cardiology in the
outpatient setting in regards to her cardiac conditions, and she will also follow up with her primary care provider. There are no barriers for discharge at the present time in the patient is appropriate to be followed in the outpatient setting.
patient should continue to take her anticoagulant Apixaban and her rate control agent Diltiazem. Patient should also continue to take the statin medication Crestor that she was prescribed.
Discharge Plan
-
Patient Disposition: Home (Routine Discharge)
Discharge Diagnosis/Procedures: paroxysmal atrial fibrillation with rapid ventricular response, severe mitral regurgitation, anxiety
Diet: No restrictions
Activity: No restrictions
Driving Restrictions: As prior to admission
Bathing Restrictions: None
Referrals:
Rigoberto Hahn MD [Active] - (2-3 weeks. The office will call to arrange.)
Olga Sosa DO [Family Provider] - in one week
Prescriptions:
New
diltiazem HCl 180 mg Capsule,Extended Release 24hr
180 mg PO BID Qty: 30 0RF
rosuvastatin 10 mg Tablet
10 mg PO QPM Qty: 30 0RF
Eliquis 5 mg Tablet
5 mg PO BID Qty: 30 0RF
Continued
aspirin 81 mg Tablet,Delayed Release (Dr/Ec)
81 mg PO HS
levothyroxine 25 mcg Tablet
25 mcg PO DAILY
calcium carbonate 500 mg calcium (1,250 mg) Tablet
500 mg PO BID
ascorbic acid (vitamin C) [Vitamin C] 500 mg Tablet
500 mg PO DAILY
ibuprofen [Advil] 200 mg Tablet
200 mg PO Q6HPRN PRN (Reason: mild pain)
vitamin B complex Tablet
1 tab PO DAILY
cholecalciferol (vitamin D3) [Vitamin D3] 25 mcg (1,000 unit) Tablet
25 mcg PO HS
omega-3 fatty acids 500 mg Capsule
500 mg PO HS
Centrum 18-400 mg-mcg Tablet
1 tab PO DAILY
Discharge Orders:
Discharge Patient (As Directed); Ordered 03/17/24
Ordered By: Kristine Morgan
Discharge Date and Time
Discharge Date/Time: 03/17/24 13:10
Print Language: NEPALI
--- NOTE | 2024-03-17 14:18 | PTCARENOTE ---
Pt up walking in halls, heart rate controlled. Telemetry shows atrial fib @80-90 with occasional periods of sinus rhythm. Pt seen by Zakiya and Gerard. Telemetry and IV device removed. Discharge instructions reviewed with pt and her son
regarding medications and their possible side effects, reporting cares and concerns and follow up appt's. Excellent understanding verbalized. Pt escorted out via wheelchair and discharged to home.
== END 2024-03-17 13:10 | disposition home or self-care (01) | DRG 309 ==
LOC: IVU 18:21
PROVIDERS: Emergency Medicine; ADMITTING PHYSICIAN Internal Medicine; CONSULT PHYSICIAN Internal Medicine Cardiovascular Disease; EMERGENCY PHYSICIAN Emergency Medicine; FAMILY PHYSICIAN Internal Medicine
DX: I48.0 Paroxysmal atrial fibrillation (principal); E87.1 Hypo-osmolality and hyponatremia; J98.11 Atelectasis; M35.00 Sjogren syndrome, unspecified; E06.3 Autoimmune thyroiditis; J44.9 Chronic obstructive pulmonary disease, unspecified; I08.0 Rheumatic disorders of both mitral and aortic valves; G70.00 Myasthenia gravis without (acute) exacerbation; I73.00 Raynaud's syndrome without gangrene; G25.0 Essential tremor; I25.10 Atherosclerotic heart disease of native coronary artery without angina pectoris; F41.9 Anxiety disorder, unspecified; G47.00 Insomnia, unspecified; S90.862A Insect bite (nonvenomous), left foot, initial encounter; W57.XXXA Bitten or stung by nonvenomous insect and other nonvenomous arthropods, initial encounter; W10.9XXA Fall (on) (from) unspecified stairs and steps, initial encounter; R50.9 Fever, unspecified; R19.7 Diarrhea, unspecified; R79.89 Other specified abnormal findings of blood chemistry; R79.1 Abnormal coagulation profile; R63.8 Other symptoms and signs concerning food and fluid intake; Z79.82 Long term (current) use of aspirin; Z79.890 Hormone replacement therapy; Z79.899 Other long term (current) drug therapy; Z87.891 Personal history of nicotine dependence; Z90.49 Acquired absence of other specified parts of digestive tract; Z11.52 Encounter for screening for COVID-19
CPT/HCPCS: 71045; 71275; 80053; 80061; 81003; 81015; 83735; 84439; 84443; 84484; 85025; 85027; 85379; 85610; 85730; 86618; 86753; 87015; 87040; 87086; 87207; 87811; 93005; 93306; 96374; 96375; 96376; 99291; Q9967

== ENCOUNTER 2024-04-20 07:01 | Day surgery (SDC) | payer MEDICARE, BC, SELFPAY ==
[2024-04-20] VITALS (13 sets, daily range): BP systolic 141–184; BP diastolic 59–78; BMI 20.7
--- NOTE | 2024-04-20 15:19 | ITS.CL.CATH ---
Product Trainer - Catheterization
Cardiac Catheterization
Procedure Report:
CARDIAC CATHETERIZATION REPORT
Date of Procedure: 04/20/2024
Referring: Rigoberto Hahn M.D., Ph.D.
Indication: Mitral valve regurgitation.
PROCEDURE:
1. Right heart catheterization.
2. Left heart catheterization.
3. Coronary angiography.
4. Left ventriculography.
ACCESS:
6 [place]uvian right radial artery.
5 [place]uvian right antecubital vein.
CATHETERS:
1. 5 [place]ian balloon wedge.
2. 5 [place]uvian JL 3.5.
3. 5 [place]ian JR4.
4. 5 [place]uvian pigtail.
HEMODYNAMIC DATA
Weight (kg): 56.4
AO (s/d/x mmHg): 164/75/115
LV (s/x mmHg): 165/12
PCWP (a/v/x mmHg): 16
PA (s/d/x mmHg): /
RV (s/x mmHg): 39/8
RA (a/v/x mmHg):
SVC SvO2 (%): 79.2
PA SvO2 (%): 77.0
SaO2 (%): 98.6
Hbg (g/dL): 12.7
CO (L/min): 4.90
CI (L/min/m2): 3.03
TPG (mmHg): 9
PVR (Mark Units): 1.84
SVR (dynes*seconds*cm^-5): 1747
AVO2 Diff (Volume %): 3.73
AV gradient (x, mmHg): None.
AV area (cm2): Normal.
LEFT VENTRICULOGRAPHY: Performed in an SANTOS projection. Normal size ventricle with normal left ventricular systolic function. Left ventricular ejection fraction estimated at 65%. There is trace to mild mitral valve regurgitation. There is no
aortic valve insufficiency. The aortic root and visualized ascending and descending aorta appear normal.
CORONARY ANGIOGRAPHY
Dominance: Right.
Left Main: Normal size, trifurcating vessel. There is no coronary artery disease.
LAD: Large size vessel giving rise to 2 diagonals. There are minor luminal irregularities.
Ramus: Medium size vessel with no coronary artery disease.
Circumflex: Normal size, nondominant vessel giving rise to 1 significant obtuse marginal. There is no coronary artery disease.
RCA: Large size, dominant vessel with a large posterolateral arcade. There is no coronary artery disease.
INTERVENTIONS
None.
Closure Device: Vascular band for the right radial artery, manual pressure for the right antecubital vein.
Radiation dose (mGy): 192.70
DAP (cm2.Gy): 12.3283
Fluoroscopy time (minutes): 3.4
Sedation time (minutes): 10
CONCLUSIONS:
1. Right dominant circulation with minor luminal irregularities in the LAD.
2. Normal left ventricular size and systolic function. LV ejection fraction estimated at 65%.
3. Trace to mild mitral valve regurgitation.
4. Normal filling pressures (LVEDP = 12 mmHg, PCWP = 12 mmHg at 56.4 kg).
5. Normal cardiac index (3.03 L/min/m�).
RECOMMENDATIONS:
1. Expectant management after cardiac catheterization via right radial/antecubital approach.
2. Limited weight bearing on the right wrist for one week.
3. Continue evaluation of patient's symptoms and expand to include noncardiac causes.
4. Okay to restart therapeutic anticoagulation tomorrow morning.
Copy to: Rigoberto Hahn M.D., Ph.D., Olga Sosa D.O.
Yobany Saleem DO, FACC, FACP
== END 2024-04-20 18:00 | disposition home or self-care (01) ==
LOC: CATH 07:01
PROVIDERS: ATTENDING PHYSICIAN Internal Medicine Cardiovascular Disease; FAMILY PHYSICIAN Internal Medicine; OTHER PHYSICIAN Internal Medicine
DX: I08.3 Combined rheumatic disorders of mitral, aortic and tricuspid valves (principal); Z79.01 Long term (current) use of anticoagulants; Z79.82 Long term (current) use of aspirin; Z79.890 Hormone replacement therapy; Z79.899 Other long term (current) drug therapy; I08.8 Other rheumatic multiple valve diseases
CPT/HCPCS: 93312; 93320; 93325; 93460; C1894

== ENCOUNTER → 2024-11-16 11:08 | Outpatient (REF) | payer MEDICARE, BC, SELFPAY | LOC: HWRCS 11:08 | PROVIDERS: ATTENDING PHYSICIAN Internal Medicine; FAMILY PHYSICIAN Internal Medicine | DX: I48.0 Paroxysmal atrial fibrillation (principal); I34.0 Nonrheumatic mitral (valve) insufficiency; I35.1 Nonrheumatic aortic (valve) insufficiency | CPT/HCPCS: 93306 ==